=== PATIENT | female | born 1965 | race Hispanic/Latino ===

== ENCOUNTER → 2018-08-27 | Outpatient (CLI) | payer SELFPAY ==
[2018-08-27 10:06] LABS: ALBUMIN 3.9 g/dL (3.5-5.0); BILIRUBIN,DIRECT 0.2 mg/dL (0.0-0.5)
== END ==
LOC: LAB 08:24
PROVIDERS: ATTEND Podiatrist Foot & Ankle Surgery
DX: B35.1 Tinea unguium (principal)
CPT/HCPCS: 36415; 80076